=== PATIENT | male | born 1960 | race Caucasian/White ===

== ENCOUNTER 2016-07-10 09:35 | Day surgery (SDC) | payer OTHER ==
[~2016-07-10] VITALS: Ht 165.1 cm; Wt 72.4 kg
[~2016-07-10 09:35] MED LIST: INSU100C5 SQ; NAPR375T5 PO
[2016-07-10] MEDS ORDERED: INSULIN REGULAR (10:51)
[2016-07-10 10:55] VITALS: BMI 26.6
[2016-07-10 11:11] VITALS: BP 160/95; PULSE 64; RESP 18; Ht 165.1 cm; Wt 72.4 kg
[2016-07-10 11:17] VITALS: BP 160/95; PULSE 64; RESP 16
[2016-07-10] MEDS ORDERED: FENTAnyl 50 MCG/ML VIAL ONE (12:42)
[2016-07-10] MEDS ORDERED: MIDAZOLAM 1 MG/ML 2 ML INJ ONE ×2 (12:43)
[2016-07-10 13:05] VITALS: BP 133/77; PULSE 70; RESP 18
--- NOTE | 2016-07-10 13:22 | GILP ---
DATE OF PROCEDURE: NAME OF PROCEDURE: Colonoscopy. SURGEON: Jared Bell MD PREOPERATIVE DIAGNOSIS: Screening colonoscopy. POSTOPERATIVE DIAGNOSES 1. Colonoscopy all the way to the cecum. 2. Poor prep making the exam very suboptimal. 3. Internal hemorrhoids. INDICATION FOR THE PROCEDURE: Mr. Amari Thorne is a 56-year-old male patient who was scheduled for screening colonoscopy. The procedure and possible complications are well explained to the patient. The patient understood and consented to the procedure. DESCRIPTION OF PROCEDURE: Under the influence of fentanyl and Versed, the colonoscope was carefully introduced in the rectum and under direct vision, it was advanced all the way to the cecum. FINDINGS: The patient had a very poor prep making the exam very suboptimal. The patient was noted to have internal hemorrhoids. He tolerated the procedure very well and there was no complication from the procedure. At the end o f the procedure, he was awake with stable vital signs and he was discharged home to the care of his family. IMPRESSION: 1. Colonoscopy all the way to the cecum. 2. Very poor prep making the exam very suboptimal. 3. Internal hemorrhoids. PLAN: The patient will need repeat colonoscopy with better preparation. Dictated By: JARED PIRES/DESEAN Conf#: [id number] DID#: [id number]
== END 2016-07-10 12:48 | disposition home or self-care (01) ==
LOC: GIL 09:35
PROVIDERS: ATTEND Internal Medicine Gastroenterology
DX: Z12.11 Encounter for screening for malignant neoplasm of colon (principal); K64.8 Other hemorrhoids; I10 Essential (primary) hypertension; E11.9 Type 2 diabetes mellitus without complications
CPT/HCPCS: 45378; 82962; J2250; J3010